=== PATIENT | female | born 2000 | race African-American/Black ===

== ENCOUNTER 2022-01-29 07:37 | Emergency (ER) | payer OTHER ==
--- NOTE | 2022-01-29 07:59 | ED Physician Documentation ---
PD HPI ABD PAIN - Stated complaint Stated Complaint: DIZZY/NAUSEA/STOMACH PX - Chief complaint Chief Complaint: Abd Pain - History obtained from History obtained from: Patient - History of Present Illness Timing - onset: How many weeks ago (2 weeks of lower abd pain and nausea. Seen at [place] [facility] and Dx pancreatitis with elevated lipase 60s. No meds Rx. COntinued with nausea and lower abd cramps. Some headache yesterday. No diarrhea. HAd COVID 3 weeks ago with mild symptoms URI, and those improved over a week. NOw with the above sxs.) Timing - duration: Weeks (2) Timing - details: Gradual onset, Still present, Waxing and waning Quality: Cramping, Aching, Pain Location: Periumbilical, Suprapubic. No: RUQ Radiation: No: Chest, Lower back Improved by: No: Eating, Laying still Worsened by: Eating. No: Breathing Associated symptoms: Nausea. No: Fever, Diarrhea, Constipation, Dysuria, Hematuria Similar symptoms before: Has not had sx before Recently seen: Clinic Review of Systems Constitutional: reports: Chills (3 weeks ago for several days with positive COVID test.), Fatigue. denies: Fever, Weight Loss Nose: denies: Rhinorrhea / runny nose, Congestion Throat: reports: Sore throat (3 weeks ago for severald ays.) Respiratory: reports: Cough (mild 3 weeks ago, gone now) GI: reports: Abdominal Pain, Nausea. denies: Vomiting, Diarrhea : reports: Control ([place]). denies: Dysuria, Frequency, Discharge, Irregular menses Skin: denies: Rash, Lesions Neurologic: reports: Generalized weakness. denies: Focal weakness, Numbness PD PAST MEDICAL HISTORY - Past Medical History Cardiovascular: None Respiratory: None Neuro: None Endocrine/Autoimmune: None - Present Medications Home Medications: Ambulatory Orders Medication Instructions Recorded Confirmed Acetaminophen [Acetaminophen Extra 500 mg PO QID PRN #50 tablet 01/29/22 Strength] Famotidine [Pepcid] 20 mg PO DAILY #15 tablet 01/29/22 Ondansetron Odt [Zofran] 4 mg TL Q6H PRN #20 tablet 01/29/22 - Allergies Allergies/Adverse Reactions: Allergies Allergy/AdvReac Type Severity Reaction Status Date / Time No Known Drug Allergies Allergy Verified 01/29/22 07:47 - Living Situation Living Arrangement: reports: At home - Social History Does the pt smoke?: No Does the pt drink ETOH?: No Does the pt have substance abuse?: No PD ED PE NORMAL - Vitals Vital signs reviewed: Yes - General General: Alert and oriented X 3, No acute distress, Well developed/nourished - Neck Neck: Supple, no meningeal sign, No adenopathy - Cardiac Cardiac: RRR, No murmur - Respiratory Respiratory: Clear bilaterally - Abdomen Abdomen: Normal bowel sounds, Soft, Non distended, No organomegaly, Other (some tender lower abd left and right. Upper abd not tender. ) - Female Female : Deferred - Rectal Rectal: Deferred - Back Back: No CVA TTP - Derm Derm: Normal color, No rash Results - Vitals Vitals: Oxygen O2 Source Room air - Labs Labs: Laboratory Tests 01/29/22 01/29/22 01/29/22 07:50 08:00 08:00 WBC 3.8 L RBC 4.05 L Hgb 12.7 Hct 37.5 MCV 92.6 MCH 31.4 H MCHC 33.9 RDW 12.5 Plt Count 307 MPV 10.5 Neut # (Auto) 1.9 Lymph # (Auto) 1.5 [place] # (Auto) 0.3 Eos # (Auto) 0.1 Baso # (Auto) 0.0 Absolute Nucleated RBC 0.00 Nucleated RBC % 0.0 Sodium 138 Potassium 3.7 Chloride 103 Carbon Dioxide 25 Anion Gap 10.0 BUN 16 Creatinine 1.0 Estimated GFR (MDRD) 84 L Glucose 91 Calcium 9.6 Total Bilirubin 2.5 H AST 23 ALT 13 Alkaline Phosphatase 41 L Total Protein 7.8 Albumin 4.5 Globulin 3.3 Albumin/Globulin Ratio 1.4 Lipase 53 H Urine Color YELLOW Urine Clarity CLEAR Urine pH 6.0 Ur Specific [place] >=1.030 H Urine Protein 100 H Urine Glucose (UA) NEGATIVE Urine Ketones NEGATIVE Urine Occult Blood NEGATIVE Urine Nitrite NEGATIVE Urine Bilirubin NEGATIVE Urine Urobilinogen 0.2 (NORMAL) Ur Leukocyte Esterase TRACE H Urine RBC 0-5 Urine WBC 0-3 Ur Squamous Epith Cells MOD Squamous H Urine Bacteria Moderate H Ur Microscopic Review INDICATED Urine Culture Comments NOT INDICATED Urine HCG, Qual NEGATIVE PD MEDICAL DECISION MAKING - ED course Complexity details: reviewed results (minimal elevation of lipase. I think that more likely inflammatory related to recent COVID and not really the cause of her lower abd cramps and nausea. No acute process on CT. Presume some residual GE. ), considered differential (lower abd pain and vomiting. no vag bleeding nor discharge. Not . Consider higher accuracy of CT versus U/S to also eval pancreas/GB/etc.), d/w patient Departure - Departure Disposition: 01 Home, Self Care Clinical Impression: Lower abdominal pain, Nausea Condition: Stable Record reviewed to determine appropriate education?: Yes Instructions: ED Abdominal Pain Female Non-Specific Abdominal Pain, ED Nausea Vomiting Follow-Up: STACIE MOREL MD [Primary Care Provider] - Prescriptions: Acetaminophen [Acetaminophen Extra Strength] 500 mg PO QID PRN #50 tablet PRN Reason: Pain Famotidine [Pepcid] 20 mg PO DAILY #15 tablet Ondansetron Odt [Zofran] 4 mg TL Q6H PRN #20 tablet PRN Reason: Nausea / Vomiting Comments: Your CT scan, blood tests, urine test do not show any acute abnormalities. Your lipase which is a marker of pancreatic function is minimally elevated at 53 with normal being up to 51. Your CT scan does not show any pancreatic inflammation. This may have been some mild inflammation related to the recent Covid or just from nausea. I do not think that is the main issue with your symptoms. No other acute findings found in the lower abdomen on CT your urine. Presume some intestinal irritation or such not visible on imaging. I would suggest some ondansetron every 6 hours if needed for nausea. Small frequent fluids and bland food. Famotidine acid reducing medicine daily for the next week or 2. To that add Tylenol every 4-6 hours if needed for pains. Follow-up with your primary care if not improved over the next several days and return sooner if worse. Discharge Date/Time: 01/29/22 11:30
[2022-01-29] MEDS ORDERED: ONDANSETRON 4 MG/2 ML VIAL IVP STA (08:11)
[2022-01-29] MEDS ORDERED: SODIUM CHLORIDE 0.9% 1,000 ML IV STA ×2 (08:11→10:14)
[2022-01-29] MEDS ORDERED: FAMOTIDINE 20 MG/2 ML VIAL IVP STA (08:12)
[2022-01-29 08:17] LABS: BASOPHILS % (AUTO) 0.8 %; EOSINOPHILS # (AUTO) 0.1 10^3/uL (0.0-0.7); EOSINOPHILS % (AUTO) 1.8 %; HCT - HEMATOCRIT 37.5 % (37.0-47.0); HGB - HEMOGLOBIN 12.7 g/dL (12.0-16.0); LYMPHOCYTES # (AUTO) 1.5 10^3/uL (1.5-3.5); LYMPHOCYTES % (AUTO) 38.8 %; MEAN CORPUSCULAR HEMOGLOBIN 31.4 pg (27.0-31.0); MEAN CORPUSCULAR HGB CONC 33.9 g/dL (32.0-36.0); MEAN CORPUSCULAR VOLUME 92.6 fL (81.0-99.0); MEAN PLATELET VOLUME 10.5 fL (7.9-10.8); MONOCYTES # (AUTO) 0.3 10^3/uL (0.0-1.0); MONOCYTES % (AUTO) 8.7 %; NEUTROPHILS # (AUTO) 1.9 10^3/uL (1.5-6.6); NEUTROPHILS % (AUTO) 49.9 %; PLT - PLATELET COUNT 307 10^3/uL (130-450); RED BLOOD COUNT 4.05 10^6/uL (4.20-5.40); RED CELL DISTRIBUTION WIDTH 12.5 % (12.0-15.0); WHITE BLOOD COUNT 3.8 x10^3/uL (4.8-10.8)
[2022-01-29 08:21] LABS: BILIRUBIN,URINE NEGATIVE (NEGATIVE); GLUCOSE, URINE (UA) NEGATIVE (NEGATIVE); KETONES,URINE (UA) NEGATIVE (NEGATIVE); LEUKOCYTE ESTERASE, URINE TRACE (NEGATIVE); NITRITE,URINE NEGATIVE (NEGATIVE); OCCULT BLOOD,URINE NEGATIVE (NEGATIVE); PROTEIN,URINE 100 mg/dL (NEGATIVE); UROBILINOGEN,URINE 0.2 (NORMAL) E.U./dL (NORMAL)
[2022-01-29 08:27] LABS: ALBUMIN 4.5 g/dL (3.2-5.5); ALBUMIN/GLOBULIN RATIO 1.4 (1.0-2.2); BILIRUBIN,TOTAL 2.5 mg/dL (0.2-1.0); CALCIUM 9.6 mg/dL (8.5-10.3); POTASSIUM 3.7 mmol/L (3.5-5.0); TOTAL PROTEIN 7.8 g/dL (6.7-8.2)
[2022-01-29 08:29] LABS: CLARITY,URINE CLEAR (CLEAR)
[2022-01-29 08:30] LABS: HCG UR QUAL NEGATIVE
[2022-01-29 08:34] LABS: BACTERIA,URINE Moderate /HPF (None Seen); RBC,URINE 0-5 /HPF (0-5); SQUAMOUS EPITHELIAL CELL,UR MOD Squamous (<= Few); WBC,URINE 0-3 /HPF (0-5)
[2022-01-29] MEDS ORDERED: IOVERSOL 320 100 ML VIAL IVP ONE ×2 (08:53→09:06)
--- NOTE | 2022-01-29 09:32 | CT Report ---
PROCEDURE: Abdomen/Pelvis W INDICATIONS: mid to lower abd pain for 2 weeks CONTRAST: IV CONTRAST: Optiray 320 ml: 100 PO CONTRAST: *NO PO CONTRAST TECHNIQUE: After the administration of intravenous contrast, 5 mm thick sections acquired from the diaphragms to the symphysis. 5 mm thick coronal and sagittal reformats were acquired. For radiation dose reducti on, the following was used: automated exposure control, adjustment of mA and/or kV according to manish ent size. COMPARISON: None. FINDINGS: Image quality: Excellent. ABDOMEN: Lung bases: Lung bases are clear. Heart size is normal. Solid organs: Liver and spleen are normal in size and enhancement. Gallbladder is unremarkable. Bi liary system is non dilated. Pancreas enhances normally. No adrenal nodules. Kidneys demonstrate n ormal size and enhancement, without hydronephrosis. Peritoneum and bowel: Bowel loops demonstrate normal wall thickness and caliber. No free fluid or a ir. Nodes and vessels: No retroperitoneal or mesenteric adenopathy by size criteria. Aorta and inferior vena cava are normal in size. Miscellaneous: No ventral hernias. PELVIS: Genitourinary: Bladder wall thickness is normal. Miscellaneous: No inguinal hernias or adenopathy. Bones: No suspicious bony lesions. No vertebral body compression fractures. IMPRESSION: Unremarkable CT of the abdomen and pelvis with contrast. No evidence of acute abdominal process. Reviewed by: uRslan Connolly MD on 01/29/2022 8:31 AM [facility] Approved by: Ruslan Connolly MD on 01/29/2022 8:31 AM [facility] Station ID: [id number]
[2022-01-29] MEDS ORDERED: KETOROLAC 15 MG/ML VIAL IVP STA (10:14)
[2022-01-29 11:15] VITALS: BP 87/53
== END 2022-01-29 11:30 | disposition home or self-care (01) ==
LOC: ED 07:37
DX: R10.30 Lower abdominal pain, unspecified (principal); R11.0 Nausea
CPT/HCPCS: 36415; 74177; 80053; 81001; 81025; 83690; 85025; 96361; 96374; 96375; 99282; 99284; Q9967; 81003; 87086

== ENCOUNTER 2022-03-12 17:42 | Emergency (ER) | payer OTHER ==
[2022-03-12 18:14] LABS: BASOPHILS % (AUTO) 0.7 %; EOSINOPHILS % (AUTO) 0.4 %; HCT - HEMATOCRIT 37.3 % (37.0-47.0); LYMPHOCYTES # (AUTO) 1.9 10^3/uL (1.5-3.5); LYMPHOCYTES % (AUTO) 34.2 %; MEAN CORPUSCULAR HEMOGLOBIN 31.9 pg (27.0-31.0); MEAN CORPUSCULAR HGB CONC 34.9 g/dL (32.0-36.0); MEAN CORPUSCULAR VOLUME 91.4 fL (81.0-99.0); MEAN PLATELET VOLUME 10.2 fL (7.9-10.8); MONOCYTES # (AUTO) 0.4 10^3/uL (0.0-1.0); MONOCYTES % (AUTO) 6.9 %; NEUTROPHILS # (AUTO) 3.3 10^3/uL (1.5-6.6); NEUTROPHILS % (AUTO) 57.6 %; PLT - PLATELET COUNT 327 10^3/uL (130-450); RED BLOOD COUNT 4.08 10^6/uL (4.20-5.40); RED CELL DISTRIBUTION WIDTH 11.7 % (12.0-15.0); WHITE BLOOD COUNT 5.7 x10^3/uL (4.8-10.8)
--- NOTE | 2022-03-12 18:24 | XRAY Report ---
PROCEDURE: Chest 1 View X-Ray INDICATIONS: Chest Pain TECHNIQUE: One view of the chest was acquired. COMPARISON: None FINDINGS: Surgical changes and devices: None. Lungs and pleura: No pleural effusions or pneumothorax. Lungs are clear. Mediastinum: Mediastinal contours appear normal. Heart size is normal. Bones and chest wall: No suspicious bony lesions. Overlying soft tissues appear unremarkable. IMPRESSION: No evidence acute pulmonary process. Reviewed by: Ruslan Connolly MD on 03/12/2022 6:22 PM PDT Approved by: Ruslan Connolly MD on 03/12/2022 6:22 PM PDT Station ID: [id number]
[2022-03-12 18:30] LABS: ALBUMIN 4.3 g/dL (3.2-5.5); ALBUMIN/GLOBULIN RATIO 1.3 (1.0-2.2); CALCIUM 9.2 mg/dL (8.5-10.3); POTASSIUM 3.7 mmol/L (3.5-5.0); TOTAL PROTEIN 7.7 g/dL (6.7-8.2)
--- NOTE | 2022-03-12 18:33 | ED Physician Documentation ---
PD HPI CHEST PAIN - Stated complaint Stated Complaint: CHEST PX,HEADACHE - Chief complaint Chief Complaint: Cardiac - History obtained from History obtained from: Patient - Additional information Additional information: 22-year-old woman started Flagyl on Monday. That night started to have intermittent chest pains. It is a sharp pain that radiates across the chest and last for about 10 minutes. There is no particular pattern to it. Sometimes it wakes her up from sleep. Sometimes its while at rest. Sometimes with light activity. She gets very mildly nauseous with it and some shortness of breath with it to. It is not associated with pedal edema or calf pain. No personal history of heart problems. She does have an aunt with some unknown heart problems. Review of Systems Ten Systems: 10 systems reviewed and negative Constitutional: denies: Fever, Chills, Fatigue Cardiac: denies: Palpitations, Pedal edema, Calf pain Respiratory: denies: Cough, Hemoptysis, Wheezing PD PAST MEDICAL HISTORY - Past Medical History Cardiovascular: None Respiratory: None Neuro: None Endocrine/Autoimmune: None - Past Surgical History Past Surgical History: No - Present Medications Home Medications: Ambulatory Orders Medication Instructions Recorded Confirmed Acetaminophen [Acetaminophen Extra 500 mg PO QID PRN #50 tablet 01/29/22 Strength] Famotidine [Pepcid] 20 mg PO DAILY #15 tablet 01/29/22 Ondansetron Odt [Zofran] 4 mg TL Q6H PRN #20 tablet 01/29/22 metroNIDAZOLE VAGINAL GEL 1 appful VG BID #70 gm 03/12/22 [Metrogel] - Allergies Allergies/Adverse Reactions: Allergies Allergy/AdvReac Type Severity Reaction Status Date / Time No Known Drug Allergies Allergy Verified 03/12/22 17:46 - Social History Does the pt smoke?: No Smoking Status: Never smoker Does the pt drink ETOH?: No Does the pt have substance abuse?: No - Immunizations Immunizations are current?: Yes - POLST Patient has POLST: No PD ED PE NORMAL - Vitals Vital signs reviewed: Yes - General General: Alert and oriented X 3, No acute distress - HEENT HEENT: PERRL, EOMI - Neck Neck: Supple, no meningeal sign, No bony TTP - Cardiac Cardiac: RRR, No murmur - Respiratory Respiratory: No respiratory distress, Clear bilaterally - Abdomen Abdomen: Normal bowel sounds, Soft, Non tender - Back Back: No CVA TTP, No spinal TTP - Derm Derm: Normal color, Warm and dry - Extremities Extremities: No edema, No calf tenderness / cord - Neuro Neuro: Alert and oriented X 3, Normal speech Results - Vitals Vitals: Vital Signs - 24 hr 03/12/22 17:46 Temperature 36.5 C Heart Rate 96 Respiratory 16 Rate Blood Pressure 124/66 O2 Saturation 100 Oxygen O2 Source Room air - EKG (time done) 1751 Rate: Rate (enter#) (96) Rhythm: NSR [place]: Normal Intervals: Normal [place] QRS: Normal Ischemia: Normal ST segments - Labs Labs: Laboratory Tests 03/12/22 03/12/22 03/12/22 18:07 18:07 18:07 WBC 5.7 RBC 4.08 L Hgb 13.0 Hct 37.3 MCV 91.4 MCH 31.9 H MCHC 34.9 RDW 11.7 L Plt Count 327 MPV 10.2 Neut # (Auto) 3.3 Lymph # (Auto) 1.9 [place] # (Auto) 0.4 Eos # (Auto) 0.0 Baso # (Auto) 0.0 Absolute Nucleated RBC 0.00 Nucleated RBC % 0.0 Sodium 134 L Potassium 3.7 Chloride 102 Carbon Dioxide 23 Anion Gap 9.0 BUN 13 Creatinine 1.0 Estimated GFR (MDRD) 83 L Glucose 138 H Calcium 9.2 Total Bilirubin 2.0 H AST 22 ALT 11 Alkaline Phosphatase 41 L Troponin I High Sens < 2.3 L Total Protein 7.7 Albumin 4.3 Globulin 3.4 Albumin/Globulin Ratio 1.3 Lipase 50 - Rads (name of study) 1v chest Radiology: EMP read contemporaneously (NAD) PD MEDICAL DECISION MAKING - ED course ED course: HEART score zero, History not consistent with thromboembolic disease. This is likely related to the Flagyl that she is on given the timing. As such we will substitute vaginal Flagyl for the oral Flagyl. Departure - Departure Disposition: 01 Home, Self Care Clinical Impression: Atypical chest pain Condition: Good Record reviewed to determine appropriate education?: Yes Instructions: ED Chest Pain Atypical Unkn Cause Prescriptions: metroNIDAZOLE VAGINAL GEL [Metrogel] 1 appful VG BID #70 gm Comments: Your heart testing is looking fine. I would discontinue the oral Flagyl presuming given the timing that this is related and we will start some intrava ginal Flagyl instead. This should cause less side effects. Return if worsening. Follow-up with your primary care physician early this coming week.
[2022-03-12 18:59] VITALS: BP 117/61
== END 2022-03-12 18:57 | disposition home or self-care (01) ==
LOC: ED 17:42
DX: R07.89 Other chest pain (principal)
CPT/HCPCS: 36415; 80053; 83690; 84484; 85025; 93005; 99284

== ENCOUNTER 2022-03-31 22:35 | Emergency (ER) | payer OTHER ==
[2022-03-31 22:47] VITALS: BP 111/80
--- NOTE | 2022-03-31 23:05 | ED Physician Documentation ---
PD HPI HEENT - Stated complaint Stated Complaint: HEADACHE/SORE MOUTH/LIGHTHEADED - Chief complaint Chief Complaint: Heent - History obtained from History obtained from: Patient - Additional information Additional information: The patient comes to the emergency department chief complaint of feeling lightheaded and having sores on the roof of her mouth and on the side of her tongue. She is also had a sore throat. Symptoms started today. The patient was otherwise feeling well but began to notice she felt a little bit lightheaded. She was not near syncopal and did not experience any nausea or ch est pain/shortness of breath. She has not had a cough. No nasal congestion. She states that earlier, she had started to notice some sores on the roof of her mouth and then while she was brushing her teeth this evening, she noticed the blood fell to the left side of her tongue was raw. Patient states she did not bite her tongue. She also has a bit of a sore scratchy throat when she swallows. No sick contacts. The patient is otherwise healthy. No other complaints at this time. Review of Systems Ten Systems: 10 systems reviewed and negative Constitutional: reports: Reviewed and negative Eyes: reports: Reviewed and negative Ears: reports: Reviewed and negative Nose: reports: Reviewed and negative Throat: reports: Oral lesions / sores Cardiac: reports: Reviewed and negative Respiratory: reports: Reviewed and negative GI: reports: Reviewed and negative : reports: Reviewed and negative Skin: reports: Reviewed and negative Musculoskeletal: reports: Reviewed and negative Neurologic: reports: Reviewed and negative Psychiatric: reports: Reviewed and negative Endocrine: reports: Reviewed and negative Immunocompromised: reports: Reviewed and negative PD PAST MEDICAL HISTORY - Past Medical History Past Medical History: No Cardiovascular: None Respiratory: None Neuro: None Endocrine/Autoimmune: None - Past Surgical History Past Surgical History: No - Allergies Allergies/Adverse Reactions: Allergies Allergy/AdvReac Type Severity Reaction Status Date / Time No Known Drug Allergies Allergy Verified 03/12/22 17:46 - Social History Does the pt smoke?: No Smoking Status: Never smoker Does the pt drink ETOH?: No Does the pt have substance abuse?: No - Immunizations Immunizations are current?: Yes - POLST Patient has POLST: No PD ED PE NORMAL - Vitals Vital signs reviewed: Yes - General General: Alert and oriented X 3, No acute distress, Well developed/nourished - HEENT HEENT: Atraumatic, PERRL, EOMI, Moist mucous membranes, Other (Mild pharyngeal erythema with occasional aphthous ulcer. Cluster of tiny aphthous ulcers/viral blisters on soft palate. No edema. No tonsillar enlargement or exudates. Mild petechiae and swelling on the left side of tongue without bleeding.) - Neck Neck: Supple, no meningeal sign, No adenopathy - Cardiac Cardiac: RRR, No murmur, Strong equal pulses - Respiratory Respiratory: No respiratory distress, Clear bilaterally - Abdomen Abdomen: Soft, Non tender, Non distended - Derm Derm: Normal color, Warm and dry, No rash - Extremities Extremities: No deformity, No edema - Neuro Neuro: Alert and oriented X 3 - Psych Psych: Normal mood, Normal affect Results - Vitals Vitals: Vital Signs - 24 hr 03/31/22 22:43 Temperature 36.6 C Heart Rate 72 Respiratory 14 Rate Blood Pressure 111/80 O2 Saturation 100 Oxygen O2 Source Room air PD MEDICAL DECISION MAKING - ED course Complexity details: considered differential, d/w patient ED course: The patient was overall very well-appearing and I discussed with her that most likely, her symptoms are viral in nature. We discussed symptomatic management at home, as well as usual indications for return. Departure - Departure Disposition: 01 Home, Self Care Clinical Impression: Aphthous ulcer of mouth, Viral syndrome Condition: Stable Instructions: ED Viviane Kirby, ED Viral Syndrome
== END 2022-03-31 23:11 | disposition home or self-care (01) ==
LOC: ED 22:35
DX: K12.0 Recurrent oral aphthae (principal); B34.9 Viral infection, unspecified
CPT/HCPCS: 99281; 99282

== ENCOUNTER 2022-08-27 11:10 | Emergency (ER) | payer OTHER ==
[2022-08-27] MEDS: ONDANSETRON ODT 4 MG TABLET TL STA (11:28)
[2022-08-27 11:52] LABS: BASOPHILS % (AUTO) 0.3 %; LYMPHOCYTES # (AUTO) 1.1 10^3/uL (1.5-3.5); LYMPHOCYTES % (AUTO) 29.7 %; MEAN CORPUSCULAR HEMOGLOBIN 30.6 pg (27.0-31.0); MEAN CORPUSCULAR HGB CONC 33.3 g/dL (32.0-36.0); MEAN CORPUSCULAR VOLUME 91.8 fL (81.0-99.0); MEAN PLATELET VOLUME 10.6 fL (7.9-10.8); MONOCYTES # (AUTO) 0.4 10^3/uL (0.0-1.0); MONOCYTES % (AUTO) 10.2 %; NEUTROPHILS # (AUTO) 2.2 10^3/uL (1.5-6.6); NEUTROPHILS % (AUTO) 59.5 %; PLT - PLATELET COUNT 251 10^3/uL (130-450); RED BLOOD COUNT 3.92 10^6/uL (4.20-5.40); WHITE BLOOD COUNT 3.6 x10^3/uL (4.8-10.8)
[2022-08-27 12:03] LABS: ALBUMIN/GLOBULIN RATIO 1.1 (1.0-2.2); BILIRUBIN,TOTAL 1.3 mg/dL (0.2-1.0); CALCIUM 9.1 mg/dL (8.5-10.3); CREATININE 1.1 mg/dL (0.4-1.0); POTASSIUM 4.5 mmol/L (3.5-5.0); TOTAL PROTEIN 7.6 g/dL (6.7-8.2)
[2022-08-27 12:10] LABS: BILIRUBIN,URINE NEGATIVE (NEGATIVE); GLUCOSE, URINE (UA) NEGATIVE (NEGATIVE); KETONES,URINE (UA) 15 mg/dL (NEGATIVE); LEUKOCYTE ESTERASE, URINE TRACE (NEGATIVE); NITRITE,URINE NEGATIVE (NEGATIVE); OCCULT BLOOD,URINE NEGATIVE (NEGATIVE); PROTEIN,URINE TRACE mg/dL (NEGATIVE); UROBILINOGEN,URINE 0.2 (NORMAL) E.U./dL (NORMAL)
[2022-08-27 12:13] LABS: CLARITY,URINE CLEAR (CLEAR); HCG UR QUAL NEGATIVE
[2022-08-27 12:29] LABS: RBC,URINE 0-5 /HPF (0-5); SQUAMOUS EPITHELIAL CELL,UR MOD Squamous (<= Few); WBC,URINE 0-3 /HPF (0-5)
[2022-08-27 12:30] LABS: BACTERIA,URINE Moderate /HPF (None Seen)
--- NOTE | 2022-08-27 15:06 | ED Physician Documentation ---
History of Present Illness - Stated complaint Stated Complaint: FEMALE /NAUSEA/HEAD PX - Chief complaint Chief Complaint: Abd Pain - Additonal information Additional information: 22-year-old female presents emergency department for evaluation of worsening vaginal discharge and discomfort. She reports that 5 days ago she was seen at [facility] for similar. She did a self swab and was diagnosed with BV and yeast. She took the Fluconazole and also began taking the Flagyl but found that she was having increased yellow copious discharge therefore she presents to the ER today. She stopped taking the antibiotics yesterday as she was not certain if it was working. She has no fevers, no dysuria. Patient was last sexually active about 1 month ago. Single male partner. Reports condom use. Has a history of receiving the HPV vaccine. No history of abnormal Pap smear. 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, Other (Vulvodynia) Skin: reports: Reviewed and negative Musculoskeletal: reports: Reviewed and negative PD PAST MEDICAL HISTORY - Past Medical History Cardiovascular: None Respiratory: None Neuro: None Endocrine/Autoimmune: None - Past Surgical History Past Surgical History: No - Present Medications Home Medications: Ambulatory Orders Medication Instructions Recorded Confirmed Doxycycline Hyclate 100 mg PO BID #14 cap 08/27/22 - Allergies Allergies/Adverse Reactions: Allergies Allergy/AdvReac Type Severity Reaction Status Date / Time No Known Drug Allergies Allergy Verified 03/12/22 17:46 - Social History Does the pt smoke?: No Smoking Status: Never smoker Does the pt drink ETOH?: No Does the pt have substance abuse?: No - Immunizations Immunizations are current?: Yes - POLST Patient has POLST: No PD ED PE EXPANDED - General General: Alert, No acute distress - Abdomen Abdomen: Normal Bowel sounds. No: Tender to palpation - Female Female : Normal external, Vaginal Discharge (Copious thin yellow vaginal discharge), Cultures sent, Video Coordinator present, Other (Very friable inflamed cervix with multiple satellite stellate ulcerations surrounding it). No: Skin lesions, Vaginal Bleeding, CMT, Adnexal Tenderness Results - Vitals Vitals: Vital Signs - 24 hr 08/27/22 11:23 Temperature 37.2 C Heart Rate 108 H Respiratory 18 Rate Blood Pressure 112/65 O2 Saturation 100 Oxygen O2 Source Room air - Labs Labs: Microbiology 08/27/22 14:59 Wet Prep - Final Cervix Laboratory Tests 08/27/22 08/27/22 08/27/22 11:40 11:46 11:46 WBC 3.6 L RBC 3.92 L Hgb 12.0 Hct 36.0 L MCV 91.8 MCH 30.6 MCHC 33.3 RDW 12.0 Plt Count 251 MPV 10.6 Neut # (Auto) 2.2 Lymph # (Auto) 1.1 L [place] # (Auto) 0.4 Eos # (Auto) 0.0 Baso # (Auto) 0.0 Absolute Nucleated RBC 0.00 Nucleated RBC % 0.0 Sodium 135 Potassium 4.5 Chloride 102 Carbon Dioxide 25 Anion Gap 8.0 BUN 14 Creatinine 1.1 H Estimated GFR (MDRD) 75 L Glucose 91 Calcium 9.1 Total Bilirubin 1.3 H AST 32 ALT 20 Alkaline Phosphatase 36 L Total Protein 7.6 Albumin 4.0 Globulin 3.6 Albumin/Globulin Ratio 1.1 Lipase 74 H Urine Color DARK YELLOW Urine Clarity CLEAR Urine pH 6.0 Ur Specific [place] >=1.030 H Urine Protein TRACE Urine Glucose (UA) NEGATIVE Urine Ketones 15 H Urine Occult Blood NEGATIVE Urine Nitrite NEGATIVE Urine Bilirubin NEGATIVE Urine Urobilinogen 0.2 (NORMAL) Ur Leukocyte Esterase TRACE H Urine RBC 0-5 Urine WBC 0-3 Ur Squamous Epith Cells MOD Squamous H Urine Bacteria Moderate H Ur Microscopic Review INDICATED Urine Culture Comments NOT INDICATED Urine HCG, Qual NEGATIVE PD MEDICAL DECISION MAKING - ED course Complexity details: reviewed results, re-evaluated patient, considered differential, d/w patient ED course: 19-year-old female presents emergency department for evaluation of worsening vaginal discharge despite starting treatment for BV and yeast infection 5 days ago. She had reported negative STI testing. Her pelvic exam revealed a copious amount of thin yellow secretions. Though she is in a monogamous relationship she did want to be treated empirically for chlamydia/gonorrhea. She received the injection of ceftriaxone here in the ER and will be dispensed with doxycycline as an outpatient. Her wet prep today continues to show clue cells more than 20%. Therefore I am advising her to complete the full course of Flagyl that was previously prescribed. However unfortunately on her pelvic exam she had a large amount of friability of the cervix with multiple satellite ulcerations surrounding it. Given the abnormal appearance of her cervix this may be the cause of her abnormal discharge and she will need further follow-up with gynecology to consider Pap smear or other evaluation/testing. This was discussed at length with the patient. She will follow-up to obtain the referral. Otherwise emergent return precautions discussed Departure - Departure Disposition: 01 Home, Self Care Clinical Impression: Vaginal discharge, Lesion of cervix Prescriptions: Doxycycline Hyclate 100 mg PO BID #14 cap Comments: Angelica you are seen today in the emergency department for headache. We did give you an injection of Toradol to help with this. I do recommend that you take 600 mg of ibuprofen and stay well-hydrated and get plenty rest at home. You are also seen for abnormal vaginal discharge. Earlier this week you are diagnosed with BV and yeast. The wet prep continues to show clue cells consistent with bacterial vaginosis. I recommend that you continue the full course of Flagyl that was previously prescribed. However we are empirically treating you for possible chlamydia and gonorrhea. You received an injection of ceftriaxone today in the emergency department and prescription for doxycycline has been sent to the [facility] in [place]. Unfortunately on your pelvic exam you had an abnormal appearing cervix. It was inflamed, red and there were multiple ulcerations surrounding it. I suspect that this is the cause of your vaginal discharge but it is an abnormal appearance and you will need to be seen by a oxygen equipment aide to have further testing and evaluation of this. They may want to consider doing a Pap smear. Please discuss this ED visit with your primary care provider. They will need to make a referral for you to gynecology.
[2022-08-27] MEDS: KETOROLAC 30 MG/ML VIAL IM STA (15:13)
[2022-08-27] MEDS: cefTRIAXone 500 MG VIAL IM STA (15:28)
[2022-08-27] MEDS: LIDOCAINE 1% 2 ML VIAL MC ONE (15:28)
[2022-08-27 15:52] VITALS: BP 94/60
[2022-08-27 22:26] LABS: CHLAMYDIA TRACHOMATIS DNA NEGATIVE (NEGATIVE); NEISSERIA GONORRHOEAE DNA NEGATIVE (NEGATIVE); TRICHOMONAS VAGINALIS DNA NEGATIVE (NEGATIVE)
== END 2022-08-27 15:52 | disposition home or self-care (01) ==
LOC: ED 11:10
DX: N89.8 Other specified noninflammatory disorders of vagina (principal); N86 Erosion and ectropion of cervix uteri; N94.819 Vulvodynia, unspecified; R51.9 Headache, unspecified; R11.0 Nausea
CPT/HCPCS: 36415; 80053; 81001; 81025; 83690; 85025; 87210; 87491; 87591; 87661; 96372; 99283; Q0162; 81003; 87086

== ENCOUNTER 2022-10-01 08:36 | Emergency (ER) | payer OTHER ==
--- NOTE | 2022-10-01 08:53 | ED Physician Documentation ---
PD HPI CHEST PAIN - Stated complaint Stated Complaint: CHEST PAIN - History obtained from History obtained from: Patient - Additional information Additional information: 22-year-old woman, otherwise healthy with recurrent issues with chest pain despite recurrent negative work-ups. Developed pain over the last few days, its a stabbing anterior pain that is brief and also squeezing. She had a presyncopal episode a few days ago. She is not short of breath. There is no associated pedal edema or calf pain, no hemoptysis. She is not on hormonal control. No close family history with coronary disease. Review of Systems Ten Systems: 10 systems reviewed and negative Constitutional: denies: Fever, Chills, Fatigue Cardiac: denies: Pedal edema, Calf pain Respiratory: denies: Dyspnea, Cough, Hemoptysis, Wheezing PD PAST MEDICAL HISTORY - Past Medical History Cardiovascular: None Respiratory: None Neuro: None Endocrine/Autoimmune: None - Past Surgical History Past Surgical History: No - Present Medications Home Medications: Ambulatory Orders Medication Instructions Recorded Confirmed Doxycycline Hyclate 100 mg PO BID #14 cap 08/27/22 - Allergies Allergies/Adverse Reactions: Allergies Allergy/AdvReac Type Severity Reaction Status Date / Time No Known Drug Allergies Allergy Verified 10/01/22 08:57 - Social History Does the pt smoke?: No Smoking Status: Never smoker Does the pt drink ETOH?: No Does the pt have substance abuse?: No - Immunizations Immunizations are current?: Yes - POLST Patient has POLST: No PD ED PE NORMAL - Vitals Vital signs reviewed: Yes - General General: Alert and oriented X 3, No acute distress - HEENT HEENT: PERRL, EOMI - Neck Neck: Supple, no meningeal sign, No bony TTP - Cardiac Cardiac: RRR, No murmur - Respiratory Respiratory: No respiratory distress, Clear bilaterally - Abdomen Abdomen: Non tender - Extremities Extremities: No edema, No calf tenderness / cord - Neuro Neuro: Alert and oriented X 3, Normal speech Results - Vitals Vitals: Vital Signs - 24 hr 10/01/22 10/01/22 10/01/22 08:54 09:15 10:13 Temperature 37.7 C Heart Rate 73 71 68 Respiratory 20 21 17 Rate Blood Pressure 111/72 106/72 107/72 O2 Saturation 100 100 100 Oxygen O2 Source Room air - EKG (time done) 0837+ Rate: Rate (enter#) (78) Rhythm: NSR [place]: Normal Intervals: Normal MA QRS: Normal Ischemia: Normal ST segments - Labs Labs: Laboratory Tests 10/01/22 10/01/22 10/01/22 08:59 08:59 08:59 WBC 4.6 L RBC 3.70 L Hgb 11.2 L Hct 34.3 L MCV 92.7 MCH 30.3 MCHC 32.7 RDW 12.3 Plt Count 292 MPV 9.8 Neut # (Auto) 2.5 Lymph # (Auto) 1.5 [place] # (Auto) 0.5 Eos # (Auto) 0.1 Baso # (Auto) 0.0 Absolute Nucleated RBC 0.00 Nucleated RBC % 0.0 Sodium 136 Potassium 3.6 Chloride 104 Carbon Dioxide 25 Anion Gap 7.0 BUN 10 Creatinine 0.9 Estimated GFR (MDRD) 94 Glucose 90 Calcium 9.3 Total Bilirubin 1.6 H AST 38 ALT 31 Alkaline Phosphatase 40 L Troponin I High Sens < 2.3 L Total Protein 7.3 Albumin 4.0 Globulin 3.3 Albumin/Globulin Ratio 1.2 Lipase 46 PD MEDICAL DECISION MAKING - ED course ED course: PERC NEG HEART 0 Departure - Departure Disposition: 01 Home, Self Care Clinical Impression: Atypical chest pain Condition: Good Record reviewed to determine appropriate education?: Yes Instructions: ED Chest Pain Atypical Unkn Cause Comments: No indication of active heart disease or anything other serious today. Of note you are mildly anemic, not uncommon in young women, take an [id number] iron supplement and discussed with your primary care physician. Given the recurrent nature of your chest pain, not unreasonable to talk with your primary care physician about GI and cardiology referrals for further evaluation and treatment. Return for new or worsening symptoms. Discharge Date/Time: 10/01/22 10:18
[2022-10-01 09:05] LABS: BASOPHILS % (AUTO) 0.6 %; EOSINOPHILS # (AUTO) 0.1 10^3/uL (0.0-0.7); EOSINOPHILS % (AUTO) 1.3 %; HCT - HEMATOCRIT 34.3 % (37.0-47.0); HGB - HEMOGLOBIN 11.2 g/dL (12.0-16.0); LYMPHOCYTES # (AUTO) 1.5 10^3/uL (1.5-3.5); LYMPHOCYTES % (AUTO) 33.3 %; MEAN CORPUSCULAR HEMOGLOBIN 30.3 pg (27.0-31.0); MEAN CORPUSCULAR HGB CONC 32.7 g/dL (32.0-36.0); MEAN CORPUSCULAR VOLUME 92.7 fL (81.0-99.0); MEAN PLATELET VOLUME 9.8 fL (7.9-10.8); MONOCYTES # (AUTO) 0.5 10^3/uL (0.0-1.0); MONOCYTES % (AUTO) 10.8 %; NEUTROPHILS # (AUTO) 2.5 10^3/uL (1.5-6.6); NEUTROPHILS % (AUTO) 53.8 %; PLT - PLATELET COUNT 292 10^3/uL (130-450); RED CELL DISTRIBUTION WIDTH 12.3 % (12.0-15.0); WHITE BLOOD COUNT 4.6 x10^3/uL (4.8-10.8)
[2022-10-01 09:22] LABS: ALBUMIN/GLOBULIN RATIO 1.2 (1.0-2.2); BILIRUBIN,TOTAL 1.6 mg/dL (0.2-1.0); CALCIUM 9.3 mg/dL (8.5-10.3); CREATININE 0.9 mg/dL (0.4-1.0); POTASSIUM 3.6 mmol/L (3.5-5.0); TOTAL PROTEIN 7.3 g/dL (6.7-8.2)
--- NOTE | 2022-10-01 09:29 | XRAY Report ---
PROCEDURE: Chest 1 View X-Ray INDICATIONS: Chest Pain TECHNIQUE: One view of the chest was acquired. COMPARISON: 03/12/2022 FINDINGS: Surgical changes and devices: None. Lungs and pleura: No pleural effusions or pneumothorax. Lungs are clear. Mediastinum: Mediastinal contours appear normal. Heart size is normal. Bones and chest wall: No suspicious bony lesions. Overlying soft tissues appear unremarkable. IMPRESSION: No acute cardiopulmonary findings Reviewed by: Michele Huynh MD on 10/01/2022 8:27 AM MATTHEW Approved by: Michele Huynh MD on 10/01/2022 8:27 AM MATTHEW Station ID: [id number]
[2022-10-01 10:14] VITALS: BP 107/72
== END 2022-10-01 10:18 | disposition home or self-care (01) ==
LOC: ED 08:36
DX: R07.89 Other chest pain (principal)
CPT/HCPCS: 36415; 80053; 83690; 84484; 85025; 93005; 99282; 99284